=== PATIENT | female | born 1965 | race Caucasian/White ===

== ENCOUNTER 2017-12-27 11:25 | Emergency (ER) | payer OTHER ==
[2017-12-27] MEDS ORDERED: SODIUM CHLORIDE 0.9% FLUSH 10 ML SOL IV PRN (11:34)
[2017-12-27] MEDS ORDERED: PROMETHAZINE HYDROCHLORIDE 25 MG/ML SOL IV ONE (11:40)
[2017-12-27 11:46] LABS: BASOPHILS % (AUTO) 1 % (0-3); EOSINOPHILS % (AUTO) 1 % (0-9); HEMATOCRIT 40 % (35-47); HEMOGLOBIN 13.3 gm/dl (12.0-15.5); LYMPHOCYTES % (AUTO) 42.9 % (10-50); MEAN CORPUSCULAR HGB CONC 33.1 gm/dl (32.0-36.0); MEAN CORPUSCULAR VOLUME 88 fL (81-99); MONOCYTES % (AUTO) 8.8 % (0-12); NEUTROPHILS % (AUTO) 45.8 % (37-80)
[2017-12-27] MEDS ORDERED: PROMETHAZINE HYDROCHLORIDE 25 MG/ML SOL ONE (11:48)
[2017-12-27] MEDS ORDERED: MECLIZINE HYDROCHLORIDE 12.5 MG TAB ONE (11:50)
[2017-12-27 11:54] VITALS: TEMP 96.4
[2017-12-27] MEDS ORDERED: HYDROMORPHONE HCL 2 MG/ML SOL IV ONE (11:54)
[2017-12-27 11:58] LABS: INR 0.98 (0.86-1.12)
[2017-12-27] MEDS ORDERED: HYDROMORPHONE 1 MG/ML SYRINGE ONE (12:01)
[2017-12-27 12:13] LABS: ALBUMIN 3.5 gm/dl (3.4-5.0); ALKALINE PHOSPHATASE 104 IU/L (46-116); ALT 48 IU/L (14-63); AST 25 IU/L (15-37); BILIRUBIN,DIRECT 0.2 mg/dl (0.0-0.2); BILIRUBIN,TOTAL 0.5 mg/dl (0.2-1.0); BLOOD UREA NITROGEN 16 mg/dl (7-18); CALCIUM 8.7 mg/dl (8.5-10.1); CARBON DIOXIDE 21.5 mEq/L (21-32); CHLORIDE 104 mMol/L (98-107); CREATININE 0.82 mg/dl (0.60-1.00); GLUCOSE 150 mg/dl (74-106); POTASSIUM 3.6 mMol/L (3.5-5.1); SODIUM 139 mMol/L (136-145); TOTAL PROTEIN 7.3 gm/dl (6.4-8.2); TROP I < 0.017 ng/ml (0.000-0.056)
[2017-12-27] MEDS ORDERED: ALTEPLASE, RECOMBINANT 50 MG PDS IV ONE ×4 (12:15→12:43)
[2017-12-27 13:34] VITALS: BP 158/100; PULSE 79; RESP 17; O2SAT 97
== END 2017-12-27 12:53 | disposition short-term general hospital (02) | DRG 66 ==
LOC: ED 11:25
DX: I63.9 Cerebral infarction, unspecified (principal)
CPT/HCPCS: 36415; 70450; 71045; 80048; 80076; 84484; 85025; 85610; 85730; 93005; 96374; 96375; 99291; J2550; J2997; A9270-GY; J1170